=== PATIENT | male | born 1990 | race Native Hawaiian/Other Pacific Islander ===

== ENCOUNTER 2017-07-12 06:55 | Emergency (ER) | payer SELFPAY ==
[2017-07-12 07:11] VITALS: BP 150/96; PULSE 72; RESP 20; TEMP 98.3; O2SAT 100
[2017-07-12] MEDS ORDERED: Lidocaine 5% Patch TD STA (07:22)
--- NOTE | 2017-07-12 07:25 | C.PDOC ---
History Of Present Illness Patient presents to the ER with complaints of left lower back pain for the past 2 days. Patient states the pain started after doing some weight lifting at the gym, and describes the pain as dull and aching. States the pain has started to radiate to the left hip and buttocks since yesterday. Patient states he has been taking Aleve with transient relief. Denies fever, chest pain, SOB, nausea, vomiting, abdominal pain, dysuria, weakness or numbness. Time Seen by Provider: 07/12/17 07:12 Chief Complaint (Nursing): Back Pain History Per: Patient Onset/Duration Of Symptoms: Days (2) Current Symptoms Are (Timing): Still Present Quality Of Discomfort: Sharp, Aching Severity: Mild Previous Symptoms: None Associated Symptoms: denies: Incontinence Exacerbating Factor(s): Sitting Past Medical History Reviewed: Historical Data, Nursing Documentation, Vital Signs Vital Signs: Last Vital Signs Temp 98.3 F 07/12/17 07:07 Pulse 72 07/12/17 07:07 Resp 20 07/12/17 07:07 BP 150/96 H 07/12/17 07:07 Pulse Ox 100 07/12/17 07:40 - Medical History PMH: No Chronic Diseases Surgical History: No Surg Hx Family History: States: No Known Family Hx - Social History Hx Alcohol Use: No Hx Substance Use: No Review Of Systems Constitutional: Negative for: Fever Cardiovascular: Negative for: Chest Pain Respiratory: Negative for: Shortness of Breath Gastrointestinal: Negative for: Nausea, Vomiting, Abdominal Pain Genitourinary: Negative for: Dysuria Musculoskeletal: Positive for: Back Pain Neurological: Negative for: Weakness, Numbness Physical Exam - Physical Exam Appears: Well, Non-toxic, No Acute Distress Skin: Warm, Dry, No Rash Head: Atraumatic, Normacephalic Eye(s): bilateral: Normal Inspection, EOMI Neck: Normal ROM Chest: Symmetrical Respiratory: Normal Breath Sounds, No Rales, No Rhonchi, No Stridor, No Wheezing Gastrointestinal/Abdominal: Normal Exam, Soft, No Tenderness, No Guarding, No Rebound Back: Normal Inspection (no rash, swelling or bulging), No CVA Tenderness, No Vertebral Tenderness, Muscle Spasm (left lower back), Paraspinal Tenderness ( paralumbar) Extremity: Bilateral: Atraumatic, Normal Color And Temperature, Normal ROM Neurological/Psych: Oriented x3, Normal Speech Gait: Steady ED Course And Treatment O2 Sat by Pulse Oximetry: 100 (RA) Pulse Ox Interpretation: Normal Medical Decision Making Medical Decision Making: IMPRESSION: back pain, muscle spasm PLAN: Lidoderm patch and Flexeril Re-Eval: patient reports feeling better, back pain is improving. Patient stable for discharge and Rx given. Recommend rest, heating pad and analgesics. Disposition Counseled Patient/Family Regarding: Diagnosis, Need For Followup, Rx Given - Disposition [facility]errals: [facility] [Outside] [facility] [Outside] [facility] Disposition: HOME/ ROUTINE Disposition Time: 07:23 Condition: STABLE Additional Instructions: Apply heat to area for 15-20 minutes two to three times a day take anti-inflammatory medication such Ibuprofen, Aleve or Advil every 6-8 hours as needed for pain Take muscle relaxant Flexeril 2-3 times per day as needed for pain and spasms. Caution: medication can cause drowsiness Follow up with your primary doctor or clinic for further evaluation. Prescriptions: Cyclobenzaprine [Cyclobenzaprine HCl] 10 mg PO TID #30 tab Instructions: Acute Low Back Pain (DC) Forms: [employer] (Kiswahili) - POA Present On Arrival: None - Clinical Impression Clinical Impression: Low back strain - PA / [employer] / Resident Statement MD/DO has reviewed & agrees with the documentation as recorded. - Scribe Statement The provider has reviewed the documentation as recorded by the Scribe Yessica Corbett All medical record entries made by the Scribe were at my direction and personally dictated by me. I have reviewed the chart and agree that the record accurately reflects my personal performance of the history, physical exam, medical decision making, and the department course for this patient. I have also personally directed, reviewed, and agree with the discharge instructions and disposition.
[2017-07-12] MEDS ORDERED: Lidocaine 5% Patch TD ONE (07:35)
== END 2017-07-12 07:39 | disposition home or self-care (01) ==
LOC: C.ER 06:55
DX: S39.012A Strain of muscle, fascia and tendon of lower back, initial encounter (principal); X50.0XXA Overexertion from strenuous movement or load, initial encounter; Y92.39 Other specified sports and athletic area as the place of occurrence of the external cause

== ENCOUNTER 2017-07-18 17:37 | Emergency (ER) | payer SELFPAY ==
[2017-07-18 17:56] VITALS: BP 147/84; PULSE 96; TEMP 99; O2SAT 99
--- NOTE | 2017-07-18 18:22 | C.PDOC ---
History Of Present Illness 26 y/o male here in ed for second visit for left lower back pain. pt seen in ed on 07/12 for back pain s/p weight lifting at gym. pt seen here, prescribed flexeril and recommended to use advil or aleve. pt has not followed up with outpatient facilitry. pt reports he has been taking diclofenac twice a day and then takes flexeril sometimes if painful, and makes him sleep for 7-8 hours. pt sts he when he has pain, he just lies down and isn't moving as much as usual. pt also c/o pain in left groin, burnng sensation, but denies any urinary symptoms, numbness or tingling, swelling or redness to area, Time Seen by Provider: 07/18/17 18:05 Chief Complaint (Nursing): Back Pain History Per: Patient, Family, Other History/Exam Limitations: no limitations Onset/Duration Of Symptoms: Days (7) Current Symptoms Are (Timing): Still Present Quality Of Discomfort: Aching, Burning Severity: Moderate Associated Symptoms: None. denies: Incontinence, New Weakness, New Numbness Exacerbating Factor(s): Movement Past Medical History Reviewed: Historical Data, Nursing Documentation, Vital Signs Vital Signs: Last Vital Signs Temp 99 F 07/18/17 17:53 Pulse 96 H 07/18/17 17:53 Resp 17 07/18/17 18:55 BP 147/84 07/18/17 17:53 Pulse Ox 99 07/18/17 18:44 - Medical History PMH: No Chronic Diseases Surgical History: Appendectomy Family History: States: Unknown Family Hx - Social History Hx Alcohol Use: Yes Hx Substance Use: No - Immunization History Hx Tetanus Toxoid Vaccination: No Hx Influenza Vaccination: Yes Hx Pneumococcal Vaccination: No Review Of Systems Constitutional: Negative for: Fever, Chills Cardiovascular: Negative for: Chest Pain Respiratory: Negative for: Cough, Shortness of Breath Gastrointestinal: Negative for: Abdominal Pain Genitourinary: Negative for: Dysuria, Frequency Musculoskeletal: Positive for: Back Pain (left side) Neurological: Negative for: Weakness, Numbness Physical Exam - Physical Exam Appears: Non-toxic, No Acute Distress Skin: Warm, Dry Neck: No Midline Cervical Tenderness, Supple Respiratory: No Decreased Breath Sounds Gastrointestinal/Abdominal: Bowel Sounds, Soft, No Tenderness, Other (mild left inguinal tenderness, no hernia noted, no erythema or warmth, no adenopathy in inguinal region) Back: Normal Inspection, No Vertebral Tenderness, Other (tender left lumbar area ) Male Genital: No Inguinal Swelling Extremity: Normal ROM, No Tenderness Neurological/Psych: Oriented x3, Normal Speech, Normal Cognition, Normal Motor, Normal Sensation ED Course And Treatment O2 Sat by Pulse Oximetry: 99 Medical Decision Making Medical Decision Making: pt here for re-eval of pain, sts now in groin as well. pt not moving around much. pt sleeping a lot due to muscle relaxant. d/c diclofenac, decrease flexeril dose, increase daily activities, f/u clinic Disposition Counseled Patient/Family Regarding: Diagnosis, Need For Followup, Rx Given - Disposition Referrals: [facility] [Outside] [facility] [Outside] [facility] [Outside] Disposition: HOME/ ROUTINE Disposition Time: 18:36 Condition: STABLE Additional Instructions: Please stop diclofenac and take ibuprofen instead, with food, as prescribed. Take half a tablet of muscle relaxant at bedtime, Continue with warm compresses and massage to area. Follow up in medical clinic- several phone numbers given to you. . Move as tolerated, do not lie in bed. Do not lift heavy objects, do not go to gym until pain resolved,. . Prescriptions: Ibuprofen [Motrin] 600 mg PO TID #30 tab Instructions: Acute Low Back Pain (ED) Forms: [facility] (Yoruba), General Discharge Instructions - Clinical Impression Clinical Impression: Low back pain
[2017-07-18 18:55] VITALS: RESP 17
== END 2017-07-18 18:55 | disposition home or self-care (01) ==
LOC: C.ER 17:37
DX: M54.5 Low back pain (principal)